=== PATIENT | male | born 1965 | race Caucasian/White ===

== ENCOUNTER 2022-08-31 18:57 | Emergency (ER) | payer OTHER, SELFPAY ==
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
[2022-08-31 19:27] VITALS: BP 146/83; PULSE 82; RESP 14; TEMP 36.4; O2SAT 97
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
[2022-08-31] MEDS: IBUPROFEN 600 MG TABLET PO (21:08)
[2022-08-31 22:39] VITALS: PULSE 89; O2SAT 98
== END 2022-08-31 22:41 | disposition home or self-care (01) ==
PROVIDERS: Emergency Provider Emergency Medicine
DX: S16.1XXA Strain of muscle, fascia and tendon at neck level, initial encounter (principal); S29.9XXA Unspecified injury of thorax, initial encounter; S39.92XA Unspecified injury of lower back, initial encounter; V43.52XA Car driver injured in collision with other type car in traffic accident, initial encounter
CPT/HCPCS: 70450; 71046; 72072; 72110; 72125; 99284; A9270